=== PATIENT | female | born 1975 | race Caucasian/White ===

== ENCOUNTER 2016-03-27 11:30 | Outpatient (RCR) | payer OTHER ==
[~2016-03-27 11:30] MED LIST: NORCO 325 MG-7.1 TAB PO; PROBIOTIC-MAJOR PO
== END 2016-04-22 12:47 | disposition still patient (30) ==
LOC: WSPT 11:30
DX: Z47.89 Encounter for other orthopedic aftercare (principal); M25.851 Other specified joint disorders, right hip

== ENCOUNTER → 2016-12-09 | Outpatient (REF) | LOC: WSOH 16:15 | DX: Z02.89 Encounter for other administrative examinations (principal) ==

== ENCOUNTER → 2018-08-24 | Outpatient (CLI) | payer OTHER | LOC: MC.RAD 07-27 11:45 | DX: Z12.31 Encounter for screening mammogram for malignant neoplasm of breast (principal) ==

== ENCOUNTER → 2019-08-26 | Outpatient (CLI) | payer OTHER | LOC: MC.RAD 11:15 | DX: Z12.31 Encounter for screening mammogram for malignant neoplasm of breast (principal) ==

== ENCOUNTER → 2020-08-29 | Outpatient (CLI) | payer OTHER | LOC: MC.RAD 11:28 | DX: Z12.31 Encounter for screening mammogram for malignant neoplasm of breast (principal) ==

== ENCOUNTER 2021-08-26 15:00 | Outpatient (RCR) | payer OTHER | END 2021-09-10 | disposition still patient (30) | LOC: WSPT | DX: M25.561 Pain in right knee (principal) ==

== ENCOUNTER → 2021-08-30 | Outpatient (CLI) | payer OTHER | LOC: MC.RAD 11:30 | DX: Z12.31 Encounter for screening mammogram for malignant neoplasm of breast (principal) ==

== ENCOUNTER 2021-09-27 11:15 | Outpatient (RCR) | payer OTHER | END 2021-10-10 | disposition still patient (30) | LOC: WSPT | DX: M25.561 Pain in right knee (principal) ==

== ENCOUNTER 2021-11-06 11:15 | Outpatient (RCR) | payer OTHER | END 2021-11-10 | disposition home or self-care (01) | LOC: WSPT | DX: M25.561 Pain in right knee (principal) ==

== ENCOUNTER → 2023-05-31 | Outpatient (CLI) | payer OTHER ==
[~2023-05-31] MED LIST changes: +PREDNISONE10 MG PO
== END ==
LOC: MC.RAD 04-14 09:00
DX: R05.9 Cough, unspecified (principal)

== ENCOUNTER → 2023-08-04 | Outpatient (CLI) | payer OTHER ==
[2004-12-17 08:00] VITALS: BP 127/77; PULSE 75; TEMP 98.8
== END ==
LOC: MC.RAD 09:15
DX: Z12.31 Encounter for screening mammogram for malignant neoplasm of breast (principal)